=== PATIENT | male | born 1935 | race Asian ===

== ENCOUNTER 2018-09-05 15:56 | Inpatient (IN) | payer MEDICARE, OTHER ==
[2018-09-05 16:06] LABS: ADD MAN DIFF? NO
[2018-09-05] MEDS: morphine 4 MG/ML VIAL IV (16:07)
[2018-09-05] MEDS: ONDANSETRON 4 MG INJ IV (16:07)
[2018-09-05] MEDS: NITROGLYCERIN 2% 1 GM OINT PKT TD (16:07)
[2018-09-05] MEDS: HEPARIN 1000 UNITS/ML 10 ML INJ IV (16:08)
[2018-09-05 16:14] LABS: WHITE BLOOD COUNT 9.5 10^3/ul (4.8-10.8)
[2018-09-05 16:14] LABS: BASOPHILS % 0.2 % (0.0-2.0); EOSINOPHILS % 0.4 % (0.0-7.0); HEMATOCRIT 40.4 % (42.0-52.0); HEMOGLOBIN 13.6 g/dl (14.0-18.0); LYMPHOCYTES # 1.6 10^3/ul (0.8-2.9); LYMPHOCYTES % 16.2 % (15.0-51.0); MEAN CORPUSCULAR HEMOGLOBIN 28.3 pg (29.0-33.0); MEAN CORPUSCULAR HGB CONC 33.7 g/dl (32.0-37.0); MEAN CORPUSCULAR VOLUME 84.2 fl (82.0-101.0); MEAN PLATELET VOLUME 10.6 fl (7.4-10.4); MONOCYTE # 0.9 10^3/ul (0.3-0.9); MONOCYTES % 9.2 % (0.0-11.0); NEUTROPHILS % 73.6 % (39.0-77.0); PLATELET COUNT 203 10^3/UL (140-415)
[2018-09-05] MEDS ORDERED: NITROGLYCERIN (IC) 100 MCG/ML INJ (16:22)
[2018-09-05] MEDS ORDERED: LIDOCAINE 1% (MDV) 20 ML INJ (16:22)
[2018-09-05] MEDS ORDERED: VERAPAMIL 5 MG INJ ×2 (16:22→16:44)
[2018-09-05] MEDS ORDERED: HEPARIN 1000 UNITS/ML 10 ML INJ (16:22)
[2018-09-05] MEDS ORDERED: FENTAnyl 50 MCG/ML VIAL (16:24)
[2018-09-05] MEDS ORDERED: MIDAZOLAM 1 MG/ML 2 ML INJ (16:32)
[2018-09-05 16:33] LABS: ANION GAP 8 (5-13); BLOOD UREA NITROGEN 18 mg/dl (7-20); CALCIUM 10.5 mg/dl (8.4-10.2); CARBON DIOXIDE 29 mmol/L (21-31); CHLORIDE 102 mmol/L (97-110); CREATININE 1.06 mg/dl (0.61-1.24); GLUCOSE 113 mg/dl (70-220); POTASSIUM 4.5 mmol/L (3.5-5.1); SODIUM 139 mmol/L (135-144)
[2018-09-05] MEDS ORDERED: CLOPIDOGREL 300 MG TAB (16:42)
[2018-09-05] MEDS ORDERED: NORepinephrine 8MG/250 ML (PMX 250 ML (17:10)
[2018-09-05] MEDS ORDERED: BIVALIRUDIN 250MG /NS 50 ML 50 ML IVPB ×2 (17:28→17:39)
[2018-09-05] MEDS: ATORVASTATIN 40 MG TAB PO (21:16)
[2018-09-06 08:10] LABS: ADD MAN DIFF? NO
[2018-09-06 08:12] LABS: BASOPHILS % 0.3 % (0.0-2.0); EOSINOPHILS % 0.1 % (0.0-7.0); HEMATOCRIT 36.1 % (42.0-52.0); HEMOGLOBIN 12.2 g/dl (14.0-18.0); LYMPHOCYTES # 1.4 10^3/ul (0.8-2.9); LYMPHOCYTES % 15.2 % (15.0-51.0); MEAN CORPUSCULAR HEMOGLOBIN 28.4 pg (29.0-33.0); MEAN CORPUSCULAR HGB CONC 33.8 g/dl (32.0-37.0); MEAN CORPUSCULAR VOLUME 84.1 fl (82.0-101.0); MEAN PLATELET VOLUME 10.8 fl (7.4-10.4); MONOCYTE # 1.1 10^3/ul (0.3-0.9); MONOCYTES % 11.8 % (0.0-11.0); NEUTROPHIL # 6.6 10^3/ul (1.6-7.5); NEUTROPHILS % 72.2 % (39.0-77.0); PLATELET COUNT 176 10^3/UL (140-415); RED BLOOD COUNT 4.29 10^6/ul (4.70-6.10); RED CELL DISTRIBUTION WIDTH 14.2 % (11.5-14.5)
[2018-09-06 08:12] LABS: WHITE BLOOD COUNT 9.2 10^3/ul (4.8-10.8)
[2018-09-06 08:27] LABS: ANION GAP 4 (5-13); BLOOD UREA NITROGEN 19 mg/dl (7-20); CALCIUM 9.5 mg/dl (8.4-10.2); CARBON DIOXIDE 28 mmol/L (21-31); CHLORIDE 106 mmol/L (97-110); CREATININE 1.01 mg/dl (0.61-1.24); GLUCOSE 100 mg/dl (70-220); MAGNESIUM 1.9 mg/dl (1.7-2.5); PHOSPHORUS 3.1 mg/dl (2.5-4.9); POTASSIUM 4.3 mmol/L (3.5-5.1); SODIUM 138 mmol/L (135-144)
[2018-09-06] MEDS: CLOPIDOGREL 75 MG TAB PO (08:54)
[2018-09-06] MEDS: ASPIRIN 81 MG TAB PO (08:54)
[2018-09-06 09:49] LABS: CHOLESTEROL 122 mg/dl (100-200)
[2018-09-06 09:49] LABS: HDL CHOLESTEROL 40 mg/dl (31-75); LDL CHOLESTEROL,CALCULATED 67 mg/dl; TRIGLYCERIDES 75 mg/dl (0-149)
[2018-09-06] MEDS: traMADol 50 MG TAB PO ×3 (13:58→21:00)
[2018-09-06] MEDS: ATORVASTATIN 40 MG TAB PO (20:14)
[2018-09-07 05:27] LABS: ADD MAN DIFF? NO
[2018-09-07 05:33] LABS: WHITE BLOOD COUNT 9.8 10^3/ul (4.8-10.8)
[2018-09-07 05:33] LABS: BASOPHILS % 0.3 % (0.0-2.0); EOSINOPHILS # 0.1 10^3/ul (0.0-0.5); EOSINOPHILS % 1.1 % (0.0-7.0); HEMATOCRIT 33.2 % (42.0-52.0); HEMOGLOBIN 11.2 g/dl (14.0-18.0); LYMPHOCYTES # 1.2 10^3/ul (0.8-2.9); MEAN CORPUSCULAR HEMOGLOBIN 28.1 pg (29.0-33.0); MEAN CORPUSCULAR HGB CONC 33.7 g/dl (32.0-37.0); MEAN CORPUSCULAR VOLUME 83.4 fl (82.0-101.0); MEAN PLATELET VOLUME 11.2 fl (7.4-10.4); MONOCYTE # 1.2 10^3/ul (0.3-0.9); MONOCYTES % 12.4 % (0.0-11.0); NEUTROPHIL # 7.2 10^3/ul (1.6-7.5); NEUTROPHILS % 73.9 % (39.0-77.0); PLATELET COUNT 166 10^3/UL (140-415); RED BLOOD COUNT 3.98 10^6/ul (4.70-6.10); RED CELL DISTRIBUTION WIDTH 14.5 % (11.5-14.5)
[2018-09-07 05:55] LABS: ANION GAP 3 (5-13); BLOOD UREA NITROGEN 28 mg/dl (7-20); CALCIUM 9.4 mg/dl (8.4-10.2); CARBON DIOXIDE 28 mmol/L (21-31); CHLORIDE 105 mmol/L (97-110); CREATININE 1.24 mg/dl (0.61-1.24); GLUCOSE 120 mg/dl (70-220); POTASSIUM 4.1 mmol/L (3.5-5.1); SODIUM 136 mmol/L (135-144)
[2018-09-07] MEDS: ASPIRIN 81 MG TAB PO (08:25)
[2018-09-07] MEDS: CLOPIDOGREL 75 MG TAB PO (08:26)
[2018-09-07] MEDS: traMADol 50 MG TAB PO ×3 (08:26→21:16)
[2018-09-07] MEDS: ATORVASTATIN 40 MG TAB PO (21:16)
[2018-09-08] MEDS: CLOPIDOGREL 75 MG TAB PO (08:17)
[2018-09-08] MEDS: ASPIRIN 81 MG TAB PO (08:17)
[2018-09-08] MEDS: traMADol 50 MG TAB PO ×3 (08:18→20:09)
[2018-09-08] MEDS: ATORVASTATIN 40 MG TAB PO (20:09)
[2018-09-09 05:39] LABS: ADD MAN DIFF? NO
[2018-09-09 05:41] LABS: WHITE BLOOD COUNT 8.6 10^3/ul (4.8-10.8)
[2018-09-09 05:41] LABS: BASOPHILS % 0.1 % (0.0-2.0); EOSINOPHILS # 0.4 10^3/ul (0.0-0.5); EOSINOPHILS % 4.5 % (0.0-7.0); HEMOGLOBIN 10.8 g/dl (14.0-18.0); LYMPHOCYTES # 0.9 10^3/ul (0.8-2.9); LYMPHOCYTES % 10.5 % (15.0-51.0); MEAN CORPUSCULAR HEMOGLOBIN 28.6 pg (29.0-33.0); MEAN CORPUSCULAR HGB CONC 33.8 g/dl (32.0-37.0); MEAN CORPUSCULAR VOLUME 84.7 fl (82.0-101.0); MONOCYTES % 11.1 % (0.0-11.0); NEUTROPHIL # 6.3 10^3/ul (1.6-7.5); NEUTROPHILS % 73.3 % (39.0-77.0); PLATELET COUNT 174 10^3/UL (140-415); RED BLOOD COUNT 3.78 10^6/ul (4.70-6.10); RED CELL DISTRIBUTION WIDTH 14.4 % (11.5-14.5)
[2018-09-09] MEDS: LEVOTHYROXINE 50 MCG TAB PO (06:09)
[2018-09-09 06:23] LABS: ANION GAP 4 (5-13); BLOOD UREA NITROGEN 28 mg/dl (7-20); CALCIUM 9.3 mg/dl (8.4-10.2); CARBON DIOXIDE 28 mmol/L (21-31); CHLORIDE 104 mmol/L (97-110); GLUCOSE 102 mg/dl (70-220); MAGNESIUM 2.3 mg/dl (1.7-2.5); PHOSPHORUS 3.4 mg/dl (2.5-4.9); POTASSIUM 4.3 mmol/L (3.5-5.1); SODIUM 136 mmol/L (135-144)
[2018-09-09] MEDS: LACTULOSE 30ML CUP PO (07:09)
[2018-09-09] MEDS: ASPIRIN 81 MG TAB PO (08:14)
[2018-09-09] MEDS: CLOPIDOGREL 75 MG TAB PO (08:14)
[2018-09-09] MEDS: traMADol 50 MG TAB PO ×3 (08:15→20:07)
[2018-09-09] MEDS ORDERED: EPTIFIBATIDE 20 MG INJ (12:00)
[2018-09-09] MEDS ORDERED: EPTIFIBATIDE 200 MG INJ IV (12:00)
[2018-09-09] MEDS: FUROSEMIDE 20 MG INJ IV ×2 (14:08→19:15)
[2018-09-09] MEDS: ATORVASTATIN 40 MG TAB PO (20:07)
[2018-09-10] MEDS: LEVOTHYROXINE 50 MCG TAB PO (06:17)
[2018-09-10] MEDS: ASPIRIN 81 MG TAB PO (08:18)
[2018-09-10] MEDS: CLOPIDOGREL 75 MG TAB PO (08:18)
[2018-09-10] MEDS: traMADol 50 MG TAB PO ×3 (08:25→21:03)
[2018-09-10] MEDS: FUROSEMIDE 20 MG INJ IV (14:08)
[2018-09-10] MEDS: ATORVASTATIN 40 MG TAB PO (21:03)
[2018-09-11] MEDS: LEVOTHYROXINE 50 MCG TAB PO (06:04)
[2018-09-11 06:28] LABS: ADD MAN DIFF? NO
[2018-09-11 06:36] LABS: BASOPHILS % 0.4 % (0.0-2.0); EOSINOPHILS # 0.5 10^3/ul (0.0-0.5); EOSINOPHILS % 6.1 % (0.0-7.0); HEMATOCRIT 34.6 % (42.0-52.0); HEMOGLOBIN 11.4 g/dl (14.0-18.0); LYMPHOCYTES # 1.1 10^3/ul (0.8-2.9); LYMPHOCYTES % 15.3 % (15.0-51.0); MEAN CORPUSCULAR HEMOGLOBIN 27.8 pg (29.0-33.0); MEAN CORPUSCULAR HGB CONC 32.9 g/dl (32.0-37.0); MEAN CORPUSCULAR VOLUME 84.4 fl (82.0-101.0); MEAN PLATELET VOLUME 10.9 fl (7.4-10.4); MONOCYTE # 0.8 10^3/ul (0.3-0.9); MONOCYTES % 10.5 % (0.0-11.0); NEUTROPHIL # 4.9 10^3/ul (1.6-7.5); NEUTROPHILS % 67.3 % (39.0-77.0); PLATELET COUNT 239 10^3/UL (140-415); RED CELL DISTRIBUTION WIDTH 14.1 % (11.5-14.5)
[2018-09-11 06:36] LABS: WHITE BLOOD COUNT 7.3 10^3/ul (4.8-10.8)
[2018-09-11 07:03] LABS: ANION GAP 5 (5-13); BLOOD UREA NITROGEN 28 mg/dl (7-20); CALCIUM 9.5 mg/dl (8.4-10.2); CARBON DIOXIDE 33 mmol/L (21-31); CHLORIDE 101 mmol/L (97-110); CREATININE 1.07 mg/dl (0.61-1.24); GLUCOSE 101 mg/dl (70-220); MAGNESIUM 2.1 mg/dl (1.7-2.5); PHOSPHORUS 3.7 mg/dl (2.5-4.9); POTASSIUM 4.2 mmol/L (3.5-5.1); SODIUM 139 mmol/L (135-144)
[2018-09-11] MEDS: ASPIRIN 81 MG TAB PO (08:49)
[2018-09-11] MEDS: POTASSIUM CHLORIDE (SR) 10 MEQ TAB PO (08:49)
[2018-09-11] MEDS: FUROSEMIDE 20 MG TAB PO (08:49)
[2018-09-11] MEDS: CLOPIDOGREL 75 MG TAB PO (08:50)
[2018-09-11] MEDS: traMADol 50 MG TAB PO ×3 (08:50→22:11)
[2018-09-11] MEDS: ATORVASTATIN 40 MG TAB PO (22:11)
[2018-09-12] MEDS: LEVOTHYROXINE 50 MCG TAB PO (06:44)
[2018-09-12] MEDS: CLOPIDOGREL 75 MG TAB PO (09:42)
[2018-09-12] MEDS: ASPIRIN 81 MG TAB PO (09:42)
[2018-09-12] MEDS: POTASSIUM CHLORIDE (SR) 10 MEQ TAB PO (09:42)
[2018-09-12] MEDS: FUROSEMIDE 20 MG TAB PO (09:43)
[2018-09-12] MEDS: traMADol 50 MG TAB PO ×3 (10:02→20:40)
[2018-09-12] MEDS: FUROSEMIDE 40 MG INJ IV (13:34)
[2018-09-12] MEDS: ATORVASTATIN 40 MG TAB PO (20:39)
[2018-09-13 05:19] LABS: ADD MAN DIFF? NO
[2018-09-13 05:27] LABS: WHITE BLOOD COUNT 7.2 10^3/ul (4.8-10.8)
[2018-09-13 05:27] LABS: BASOPHILS % 0.4 % (0.0-2.0); EOSINOPHILS # 0.4 10^3/ul (0.0-0.5); EOSINOPHILS % 5.5 % (0.0-7.0); HEMATOCRIT 34.5 % (42.0-52.0); HEMOGLOBIN 11.5 g/dl (14.0-18.0); LYMPHOCYTES # 1.3 10^3/ul (0.8-2.9); LYMPHOCYTES % 18.4 % (15.0-51.0); MEAN CORPUSCULAR HGB CONC 33.3 g/dl (32.0-37.0); MEAN CORPUSCULAR VOLUME 84.1 fl (82.0-101.0); MEAN PLATELET VOLUME 10.7 fl (7.4-10.4); MONOCYTE # 0.9 10^3/ul (0.3-0.9); MONOCYTES % 11.7 % (0.0-11.0); NEUTROPHIL # 4.6 10^3/ul (1.6-7.5); NEUTROPHILS % 63.7 % (39.0-77.0); PLATELET COUNT 273 10^3/UL (140-415); RED CELL DISTRIBUTION WIDTH 14.1 % (11.5-14.5)
[2018-09-13 05:52] LABS: ANION GAP 5 (5-13); BLOOD UREA NITROGEN 23 mg/dl (7-20); CALCIUM 9.5 mg/dl (8.4-10.2); CARBON DIOXIDE 32 mmol/L (21-31); CHLORIDE 102 mmol/L (97-110); CREATININE 0.97 mg/dl (0.61-1.24); GLUCOSE 93 mg/dl (70-220); MAGNESIUM 2.1 mg/dl (1.7-2.5); PHOSPHORUS 3.3 mg/dl (2.5-4.9); POTASSIUM 3.8 mmol/L (3.5-5.1); SODIUM 139 mmol/L (135-144)
[2018-09-13] MEDS: LEVOTHYROXINE 50 MCG TAB PO (06:35)
[2018-09-13] MEDS: POTASSIUM CHLORIDE (SR) 10 MEQ TAB PO (08:55)
[2018-09-13] MEDS: ASPIRIN 81 MG TAB PO (08:55)
[2018-09-13] MEDS: CLOPIDOGREL 75 MG TAB PO (08:55)
[2018-09-13] MEDS: FUROSEMIDE 40 MG TAB PO (08:55)
[2018-09-13] MEDS: traMADol 50 MG TAB PO ×3 (08:59→20:26)
[2018-09-13] MEDS: ATORVASTATIN 40 MG TAB PO (20:26)
[2018-09-14 06:13] LABS: ADD MAN DIFF? NO
[2018-09-14 06:22] LABS: BASOPHILS % 0.4 % (0.0-2.0); EOSINOPHILS # 0.4 10^3/ul (0.0-0.5); EOSINOPHILS % 5.3 % (0.0-7.0); HEMATOCRIT 33.1 % (42.0-52.0); LYMPHOCYTES # 1.4 10^3/ul (0.8-2.9); LYMPHOCYTES % 18.7 % (15.0-51.0); MEAN CORPUSCULAR HEMOGLOBIN 27.8 pg (29.0-33.0); MEAN CORPUSCULAR HGB CONC 33.2 g/dl (32.0-37.0); MEAN CORPUSCULAR VOLUME 83.6 fl (82.0-101.0); MEAN PLATELET VOLUME 10.6 fl (7.4-10.4); MONOCYTE # 0.9 10^3/ul (0.3-0.9); MONOCYTES % 11.3 % (0.0-11.0); NEUTROPHIL # 4.9 10^3/ul (1.6-7.5); NEUTROPHILS % 63.9 % (39.0-77.0); PLATELET COUNT 296 10^3/UL (140-415); RED BLOOD COUNT 3.96 10^6/ul (4.70-6.10); RED CELL DISTRIBUTION WIDTH 13.9 % (11.5-14.5)
[2018-09-14 06:22] LABS: WHITE BLOOD COUNT 7.6 10^3/ul (4.8-10.8)
[2018-09-14 06:54] LABS: ANION GAP 4 (5-13); BLOOD UREA NITROGEN 23 mg/dl (7-20); CALCIUM 9.1 mg/dl (8.4-10.2); CARBON DIOXIDE 32 mmol/L (21-31); CHLORIDE 102 mmol/L (97-110); GLUCOSE 94 mg/dl (70-220); PHOSPHORUS 3.6 mg/dl (2.5-4.9); SODIUM 138 mmol/L (135-144)
[2018-09-14] MEDS: LEVOTHYROXINE 50 MCG TAB PO (08:19)
[2018-09-14] MEDS: FUROSEMIDE 40 MG TAB PO (08:20)
[2018-09-14] MEDS: CLOPIDOGREL 75 MG TAB PO (08:21)
[2018-09-14] MEDS: POTASSIUM CHLORIDE (SR) 10 MEQ TAB PO (08:21)
[2018-09-14] MEDS: ASPIRIN 81 MG TAB PO (08:21)
[2018-09-14] MEDS: traMADol 50 MG TAB PO ×2 (08:24→14:22)
[2018-09-14] MEDS: LACTULOSE 30ML CUP PO (14:21)
== END 2018-09-14 18:26 | DRG 246 ==
LOC: 6WM 09-07 15:28 → E/R 15:56 → CCL 16:10 → SDS 16:10 → CCL 18:13 → ICU 18:38
PROC: 027035Z Dilation of Coronary Artery, One Artery with Two Drug-eluting Intraluminal Devices, Percutaneous Approach (ICD-10-PCS; principal; 2018-09-05 16:16)
PROC: 4A023N7 Measurement of Cardiac Sampling and Pressure, Left Heart, Percutaneous Approach (ICD-10-PCS; 2018-09-05 16:16)
PROC: B211YZZ Fluoroscopy of Multiple Coronary Arteries using Other Contrast (ICD-10-PCS; 2018-09-05 16:16)
PROC: 3E033PZ Introduction of Platelet Inhibitor into Peripheral Vein, Percutaneous Approach (ICD-10-PCS; 2018-09-05 16:16)
DX: I21.02 ST elevation (STEMI) myocardial infarction involving left anterior descending coronary artery (principal); I50.23 Acute on chronic systolic (congestive) heart failure; I11.0 Hypertensive heart disease with heart failure; I25.10 Atherosclerotic heart disease of native coronary artery without angina pectoris; I25.5 Ischemic cardiomyopathy; E03.9 Hypothyroidism, unspecified; E78.5 Hyperlipidemia, unspecified; D64.9 Anemia, unspecified; M25.569 Pain in unspecified knee
CPT/HCPCS: 36415; 71045; 80048; 80061; 82962; 83735; 84100; 84484; 85025; 87081; 93005; 93306; 96374; 96375; 97110; 97162; 97530; 99285-25

== ENCOUNTER 2018-09-14 19:40 | Inpatient (IN) | payer MEDICARE, OTHER ==
[2018-09-14] MEDS ORDERED: LACTULOSE 30ML CUP PO (22:00)
[2018-09-14] MEDS: ATORVASTATIN 40 MG TAB PO (22:21)
[2018-09-14] MEDS: traMADol 50 MG TAB PO (22:22)
[2018-09-14] MEDS ORDERED: ACETAMINOPHEN 325 MG TAB PO (22:30)
[2018-09-14] MEDS ORDERED: BISACODYL 10 MG SUPP PR (22:30)
[2018-09-14] MEDS ORDERED: MAGNESIUM HYDROXIDE 30ML CUP PO (22:30)
[2018-09-14 23:22] LABS: ADD UMIC YES; UR ASCORBIC ACID NEGATIVE (NEGATIVE); UR BILIRUBIN (Dip) NEGATIVE (NEGATIVE); UR BLOOD (Dip) 1+ mg/dL (NEGATIVE); UR CLARITY CLEAR (CLEAR); UR COLOR YELLOW (YELLOW); UR GLUCOSE (Dip) NEGATIVE (NEGATIVE); UR KETONES (Dip) NEGATIVE (NEGATIVE); UR LEUKOCYTE ESTERASE (Dip) NEGATIVE Leu/ul (NEGATIVE); UR NITRITE (Dip) NEGATIVE (NEGATIVE); UR RBC 10 /HPF (0-5); UR SPECIFIC GRAVITY (Dip) 1.014 (1.003-1.030); UR TOTAL PROTEIN (Dip) NEGATIVE (NEGATIVE); UR UROBILINOGEN (Dip) 2+ mg/dL (NEGATIVE); UR WBC 0 /HPF (0-5)
[2018-09-15] MEDS: LEVOTHYROXINE 50 MCG TAB PO (06:52)
[2018-09-15 07:16] LABS: ADD MAN DIFF? NO
[2018-09-15 07:17] LABS: BASOPHILS % 0.5 % (0.0-2.0); EOSINOPHILS # 0.4 10^3/ul (0.0-0.5); HEMATOCRIT 33.6 % (42.0-52.0); LYMPHOCYTES # 1.4 10^3/ul (0.8-2.9); LYMPHOCYTES % 18.4 % (15.0-51.0); MEAN CORPUSCULAR HEMOGLOBIN 27.7 pg (29.0-33.0); MEAN CORPUSCULAR HGB CONC 32.7 g/dl (32.0-37.0); MEAN CORPUSCULAR VOLUME 84.6 fl (82.0-101.0); MEAN PLATELET VOLUME 10.4 fl (7.4-10.4); MONOCYTE # 0.9 10^3/ul (0.3-0.9); NEUTROPHIL # 5.1 10^3/ul (1.6-7.5); NEUTROPHILS % 64.8 % (39.0-77.0); PLATELET COUNT 294 10^3/UL (140-415); RED BLOOD COUNT 3.97 10^6/ul (4.70-6.10); RED CELL DISTRIBUTION WIDTH 13.7 % (11.5-14.5)
[2018-09-15 07:17] LABS: WHITE BLOOD COUNT 7.8 10^3/ul (4.8-10.8)
[2018-09-15 07:46] LABS: ALANINE AMINOTRANSFERASE 60 IU/L (13-69); ALBUMIN 2.9 g/dl (3.3-4.9); ALBUMIN/GLOBULIN RATIO 1.07; ALKALINE PHOSPHATASE 126 IU/L (42-121); ANION GAP 4 (5-13); ASPARTATE AMINO TRANSFERASE 36 IU/L (15-46); BILIRUBIN,INDIRECT 0.7 mg/dl (0-1.1); BILIRUBIN,TOTAL 0.7 mg/dl (0.2-1.3); BLOOD UREA NITROGEN 24 mg/dl (7-20); CALCIUM 9.5 mg/dl (8.4-10.2); CARBON DIOXIDE 31 mmol/L (21-31); CHLORIDE 100 mmol/L (97-110); CREATININE 0.95 mg/dl (0.61-1.24); GLUCOSE 91 mg/dl (70-220); POTASSIUM 3.8 mmol/L (3.5-5.1); SODIUM 135 mmol/L (135-144); TOTAL PROTEIN 5.6 g/dl (6.1-8.1)
[2018-09-15] MEDS: ASPIRIN 81 MG TAB PO (09:06)
[2018-09-15] MEDS: POTASSIUM CHLORIDE (SR) 10 MEQ TAB PO (09:06)
[2018-09-15] MEDS: DOCUSATE SODIUM 100 MG CAP PO ×2 (09:07→21:16)
[2018-09-15] MEDS: traMADol 50 MG TAB PO ×3 (09:08→21:16)
[2018-09-15] MEDS: FUROSEMIDE 40 MG TAB PO (09:08)
[2018-09-15] MEDS: CLOPIDOGREL 75 MG TAB PO (09:09)
[2018-09-15] MEDS: DICLOFENAC SODIUM 1% GEL 100 GM TUBE TP (13:37)
[2018-09-15] MEDS: ATORVASTATIN 40 MG TAB PO (21:16)
[2018-09-15] MEDS: SENNA TAB PO (21:16)
[2018-09-16] MEDS: LEVOTHYROXINE 50 MCG TAB PO (07:30)
[2018-09-16] MEDS: CLOPIDOGREL 75 MG TAB PO (08:57)
[2018-09-16] MEDS: ASPIRIN 81 MG TAB PO (08:57)
[2018-09-16] MEDS: POTASSIUM CHLORIDE (SR) 10 MEQ TAB PO (08:57)
[2018-09-16] MEDS: traMADol 50 MG TAB PO ×3 (08:57→20:54)
[2018-09-16] MEDS: DOCUSATE SODIUM 100 MG CAP PO ×2 (08:58→20:53)
[2018-09-16] MEDS: FUROSEMIDE 40 MG TAB PO ×2 (09:00→18:45)
[2018-09-16] MEDS: DICLOFENAC SODIUM 1% GEL 100 GM TUBE TP ×3 (13:00→20:56)
[2018-09-16] MEDS: ATORVASTATIN 40 MG TAB PO (20:53)
[2018-09-16] MEDS: SENNA TAB PO (20:54)
[2018-09-17] MEDS: LEVOTHYROXINE 50 MCG TAB PO (06:26)
[2018-09-17 08:24] LABS: ADD MAN DIFF? NO
[2018-09-17 08:27] LABS: BASOPHILS % 0.4 % (0.0-2.0); EOSINOPHILS # 0.3 10^3/ul (0.0-0.5); EOSINOPHILS % 3.5 % (0.0-7.0); HEMATOCRIT 33.2 % (42.0-52.0); HEMOGLOBIN 10.9 g/dl (14.0-18.0); LYMPHOCYTES # 1.4 10^3/ul (0.8-2.9); LYMPHOCYTES % 18.6 % (15.0-51.0); MEAN CORPUSCULAR HEMOGLOBIN 27.7 pg (29.0-33.0); MEAN CORPUSCULAR HGB CONC 32.8 g/dl (32.0-37.0); MEAN CORPUSCULAR VOLUME 84.5 fl (82.0-101.0); MEAN PLATELET VOLUME 10.5 fl (7.4-10.4); MONOCYTE # 0.8 10^3/ul (0.3-0.9); MONOCYTES % 10.5 % (0.0-11.0); NEUTROPHIL # 5.1 10^3/ul (1.6-7.5); NEUTROPHILS % 66.6 % (39.0-77.0); PLATELET COUNT 276 10^3/UL (140-415); RED BLOOD COUNT 3.93 10^6/ul (4.70-6.10); RED CELL DISTRIBUTION WIDTH 13.6 % (11.5-14.5)
[2018-09-17 08:27] LABS: WHITE BLOOD COUNT 7.7 10^3/ul (4.8-10.8)
[2018-09-17] MEDS: DOCUSATE SODIUM 100 MG CAP PO ×2 (08:56→21:28)
[2018-09-17] MEDS: POTASSIUM CHLORIDE (SR) 10 MEQ TAB PO (08:56)
[2018-09-17] MEDS: CLOPIDOGREL 75 MG TAB PO (08:56)
[2018-09-17] MEDS: ASPIRIN 81 MG TAB PO (08:56)
[2018-09-17] MEDS: traMADol 50 MG TAB PO ×3 (08:57→21:28)
[2018-09-17 09:01] LABS: ANION GAP 7 (5-13); BLOOD UREA NITROGEN 23 mg/dl (7-20); CALCIUM 9.2 mg/dl (8.4-10.2); CARBON DIOXIDE 30 mmol/L (21-31); CHLORIDE 100 mmol/L (97-110); CREATININE 0.97 mg/dl (0.61-1.24); GLUCOSE 98 mg/dl (70-220); PHOSPHORUS 3.7 mg/dl (2.5-4.9); POTASSIUM 3.8 mmol/L (3.5-5.1); SODIUM 137 mmol/L (135-144)
[2018-09-17] MEDS: DICLOFENAC SODIUM 1% GEL 100 GM TUBE TP ×4 (09:01→21:30)
[2018-09-17] MEDS: FUROSEMIDE 40 MG TAB PO (15:11)
[2018-09-17] MEDS: SENNA TAB PO (21:28)
[2018-09-17] MEDS: ATORVASTATIN 40 MG TAB PO (21:28)
[2018-09-18] MEDS: LEVOTHYROXINE 50 MCG TAB PO (06:41)
[2018-09-18] MEDS: DOCUSATE SODIUM 100 MG CAP PO ×2 (11:23→21:00)
[2018-09-18] MEDS: traMADol 50 MG TAB PO ×3 (11:23→20:30)
[2018-09-18] MEDS: CLOPIDOGREL 75 MG TAB PO (11:24)
[2018-09-18] MEDS: POTASSIUM CHLORIDE (SR) 10 MEQ TAB PO (11:24)
[2018-09-18] MEDS: FUROSEMIDE 40 MG TAB PO (11:24)
[2018-09-18] MEDS: DICLOFENAC SODIUM 1% GEL 100 GM TUBE TP ×4 (11:25→20:30)
[2018-09-18] MEDS: POLYETHYLENE GLYCOL 17 GM PACKET PO (11:25)
[2018-09-18] MEDS: ASPIRIN 81 MG TAB PO (11:25)
[2018-09-18] MEDS: ATORVASTATIN 40 MG TAB PO (20:24)
[2018-09-18] MEDS: SENNA TAB PO (21:00)
[2018-09-19] MEDS: LEVOTHYROXINE 50 MCG TAB PO (05:46)
[2018-09-19] MEDS ORDERED: NA PHOSPHATE/BIPHOS 133 ML ENEMA PR (08:30)
[2018-09-19] MEDS: CLOPIDOGREL 75 MG TAB PO (09:44)
[2018-09-19] MEDS: DOCUSATE SODIUM 100 MG CAP PO ×2 (09:44→20:42)
[2018-09-19] MEDS: DICLOFENAC SODIUM 1% GEL 100 GM TUBE TP ×4 (09:44→20:44)
[2018-09-19] MEDS: POLYETHYLENE GLYCOL 17 GM PACKET PO (09:44)
[2018-09-19] MEDS: FUROSEMIDE 40 MG TAB PO (09:45)
[2018-09-19] MEDS: POTASSIUM CHLORIDE (SR) 10 MEQ TAB PO (09:45)
[2018-09-19] MEDS: traMADol 50 MG TAB PO ×3 (09:45→20:44)
[2018-09-19] MEDS: ASPIRIN 81 MG TAB PO (09:45)
[2018-09-19] MEDS: SPIRONOLACTONE 25 MG TAB PO (14:00)
[2018-09-19] MEDS: ATORVASTATIN 40 MG TAB PO (20:43)
[2018-09-19] MEDS: SENNA TAB PO (20:43)
[2018-09-20] MEDS: LEVOTHYROXINE 50 MCG TAB PO (06:12)
[2018-09-20] MEDS: SPIRONOLACTONE 25 MG TAB PO (06:12)
[2018-09-20 07:07] LABS: ADD MAN DIFF? NO
[2018-09-20 07:09] LABS: BASOPHILS % 0.4 % (0.0-2.0); EOSINOPHILS # 0.3 10^3/ul (0.0-0.5); HEMATOCRIT 33.2 % (42.0-52.0); HEMOGLOBIN 10.9 g/dl (14.0-18.0); LYMPHOCYTES # 1.1 10^3/ul (0.8-2.9); LYMPHOCYTES % 16.3 % (15.0-51.0); MEAN CORPUSCULAR HEMOGLOBIN 27.5 pg (29.0-33.0); MEAN CORPUSCULAR HGB CONC 32.8 g/dl (32.0-37.0); MEAN CORPUSCULAR VOLUME 83.6 fl (82.0-101.0); MEAN PLATELET VOLUME 10.2 fl (7.4-10.4); MONOCYTE # 0.7 10^3/ul (0.3-0.9); MONOCYTES % 10.3 % (0.0-11.0); NEUTROPHIL # 4.7 10^3/ul (1.6-7.5); NEUTROPHILS % 68.7 % (39.0-77.0); PLATELET COUNT 267 10^3/UL (140-415); RED BLOOD COUNT 3.97 10^6/ul (4.70-6.10); RED CELL DISTRIBUTION WIDTH 13.5 % (11.5-14.5)
[2018-09-20 07:09] LABS: WHITE BLOOD COUNT 6.8 10^3/ul (4.8-10.8)
[2018-09-20 07:29] LABS: ANION GAP 3 (5-13); BLOOD UREA NITROGEN 20 mg/dl (7-20); CALCIUM 9.4 mg/dl (8.4-10.2); CARBON DIOXIDE 32 mmol/L (21-31); CHLORIDE 99 mmol/L (97-110); CREATININE 0.92 mg/dl (0.61-1.24); GLUCOSE 97 mg/dl (70-220); MAGNESIUM 2.1 mg/dl (1.7-2.5); PHOSPHORUS 3.4 mg/dl (2.5-4.9); SODIUM 134 mmol/L (135-144)
[2018-09-20] MEDS: POLYETHYLENE GLYCOL 17 GM PACKET PO (09:02)
[2018-09-20] MEDS: DOCUSATE SODIUM 100 MG CAP PO ×2 (09:02→20:34)
[2018-09-20] MEDS: ASPIRIN 81 MG TAB PO (09:03)
[2018-09-20] MEDS: POTASSIUM CHLORIDE (SR) 10 MEQ TAB PO (09:03)
[2018-09-20] MEDS: FUROSEMIDE 40 MG TAB PO (09:04)
[2018-09-20] MEDS: CLOPIDOGREL 75 MG TAB PO (09:04)
[2018-09-20] MEDS: traMADol 50 MG TAB PO ×3 (09:04→20:34)
[2018-09-20] MEDS: DICLOFENAC SODIUM 1% GEL 100 GM TUBE TP ×4 (09:05→20:36)
[2018-09-20] MEDS: ATORVASTATIN 40 MG TAB PO (20:34)
[2018-09-20] MEDS: SENNA TAB PO (20:34)
[2018-09-21] MEDS: SPIRONOLACTONE 25 MG TAB PO (06:04)
[2018-09-21] MEDS: LEVOTHYROXINE 50 MCG TAB PO (06:06)
[2018-09-21] MEDS: ASPIRIN 81 MG TAB PO (08:34)
[2018-09-21] MEDS: CLOPIDOGREL 75 MG TAB PO (08:34)
[2018-09-21] MEDS: POTASSIUM CHLORIDE (SR) 10 MEQ TAB PO (08:34)
[2018-09-21] MEDS: FUROSEMIDE 40 MG TAB PO (08:35)
[2018-09-21] MEDS: traMADol 50 MG TAB PO ×3 (08:35→21:11)
[2018-09-21] MEDS: DOCUSATE SODIUM 100 MG CAP PO ×2 (08:35→21:00)
[2018-09-21] MEDS: POLYETHYLENE GLYCOL 17 GM PACKET PO (08:35)
[2018-09-21] MEDS: DICLOFENAC SODIUM 1% GEL 100 GM TUBE TP ×4 (08:40→21:00)
[2018-09-21] MEDS: SENNA TAB PO (21:00)
[2018-09-21] MEDS: ATORVASTATIN 40 MG TAB PO (21:11)
[2018-09-22] MEDS: LEVOTHYROXINE 50 MCG TAB PO (06:09)
[2018-09-22] MEDS: SPIRONOLACTONE 25 MG TAB PO (06:09)
[2018-09-22] MEDS: ASPIRIN 81 MG TAB PO (09:02)
[2018-09-22] MEDS: FUROSEMIDE 40 MG TAB PO (09:03)
[2018-09-22] MEDS: traMADol 50 MG TAB PO ×3 (09:03→21:13)
[2018-09-22] MEDS: DOCUSATE SODIUM 100 MG CAP PO ×2 (09:04→21:13)
[2018-09-22] MEDS: POLYETHYLENE GLYCOL 17 GM PACKET PO (09:04)
[2018-09-22] MEDS: POTASSIUM CHLORIDE (SR) 10 MEQ TAB PO (09:04)
[2018-09-22] MEDS: DICLOFENAC SODIUM 1% GEL 100 GM TUBE TP ×4 (09:05→21:13)
[2018-09-22] MEDS: CLOPIDOGREL 75 MG TAB PO (09:08)
[2018-09-22] MEDS: SENNA TAB PO (21:13)
[2018-09-22] MEDS: ATORVASTATIN 40 MG TAB PO (21:13)
[2018-09-23] MEDS: LEVOTHYROXINE 50 MCG TAB PO (06:41)
[2018-09-23] MEDS: SPIRONOLACTONE 25 MG TAB PO (06:41)
[2018-09-23] MEDS: POLYETHYLENE GLYCOL 17 GM PACKET PO (08:26)
[2018-09-23] MEDS: ASPIRIN 81 MG TAB PO (08:29)
[2018-09-23] MEDS: CLOPIDOGREL 75 MG TAB PO (08:30)
[2018-09-23] MEDS: traMADol 50 MG TAB PO ×3 (08:31→21:44)
[2018-09-23] MEDS: DOCUSATE SODIUM 100 MG CAP PO ×2 (08:32→21:45)
[2018-09-23] MEDS: POTASSIUM CHLORIDE (SR) 10 MEQ TAB PO (08:32)
[2018-09-23] MEDS: FUROSEMIDE 40 MG TAB PO (08:33)
[2018-09-23] MEDS: DICLOFENAC SODIUM 1% GEL 100 GM TUBE TP ×4 (08:34→21:00)
[2018-09-23] MEDS ORDERED: ARTIFICIAL TEARS 15 ML OPH BOTH EYES (17:00)
[2018-09-23] MEDS: ATORVASTATIN 40 MG TAB PO (21:44)
[2018-09-23] MEDS: SENNA TAB PO (21:44)
[2018-09-24] MEDS: LEVOTHYROXINE 50 MCG TAB PO (06:40)
[2018-09-24] MEDS: SPIRONOLACTONE 25 MG TAB PO (06:40)
[2018-09-24] MEDS: DOCUSATE SODIUM 100 MG CAP PO ×2 (08:25→21:45)
[2018-09-24] MEDS: ASPIRIN 81 MG TAB PO (08:25)
[2018-09-24] MEDS: FUROSEMIDE 40 MG TAB PO (08:26)
[2018-09-24] MEDS: POTASSIUM CHLORIDE (SR) 10 MEQ TAB PO (08:26)
[2018-09-24] MEDS: traMADol 50 MG TAB PO ×3 (08:27→21:44)
[2018-09-24] MEDS: CLOPIDOGREL 75 MG TAB PO (08:27)
[2018-09-24] MEDS: DICLOFENAC SODIUM 1% GEL 100 GM TUBE TP ×4 (08:27→21:48)
[2018-09-24] MEDS: POLYETHYLENE GLYCOL 17 GM PACKET PO (09:54)
[2018-09-24] MEDS: LISINOPRIL 5 MG TAB PO (11:12)
[2018-09-24] MEDS: SENNA TAB PO (21:00)
[2018-09-24] MEDS: ATORVASTATIN 40 MG TAB PO (21:44)
[2018-09-25] MEDS: LEVOTHYROXINE 50 MCG TAB PO (06:20)
[2018-09-25] MEDS: SPIRONOLACTONE 25 MG TAB PO (06:20)
[2018-09-25] MEDS: POLYETHYLENE GLYCOL 17 GM PACKET PO (09:00)
[2018-09-25] MEDS: DICLOFENAC SODIUM 1% GEL 100 GM TUBE TP ×4 (09:00→20:33)
[2018-09-25] MEDS: ASPIRIN 81 MG TAB PO (09:02)
[2018-09-25] MEDS: DOCUSATE SODIUM 100 MG CAP PO ×2 (09:02→20:32)
[2018-09-25] MEDS: LISINOPRIL 5 MG TAB PO (09:05)
[2018-09-25] MEDS: FUROSEMIDE 40 MG TAB PO (09:05)
[2018-09-25] MEDS: POTASSIUM CHLORIDE (SR) 10 MEQ TAB PO (09:06)
[2018-09-25] MEDS: CLOPIDOGREL 75 MG TAB PO (09:07)
[2018-09-25] MEDS: traMADol 50 MG TAB PO ×3 (09:07→20:32)
[2018-09-25] MEDS: BETAMET NA PHOS/AC(6 MG/ML) 5ML INJ INJ (18:00)
[2018-09-25] MEDS: BUPIVACAINE 0.5%/EPI (SDV) 10 ML INJ INJ (18:00)
[2018-09-25] MEDS: BUPIVACAINE 0.5%/EPI (SDV) 30 ML INJ INJ (19:30)
[2018-09-25] MEDS: ATORVASTATIN 40 MG TAB PO (20:32)
[2018-09-25] MEDS: SENNA TAB PO (20:32)
[2018-09-26] MEDS: LEVOTHYROXINE 50 MCG TAB PO (06:16)
[2018-09-26] MEDS: SPIRONOLACTONE 25 MG TAB PO (06:16)
[2018-09-26 08:25] LABS: ANION GAP 9 (5-13); BLOOD UREA NITROGEN 36 mg/dl (7-20); CALCIUM 9.7 mg/dl (8.4-10.2); CARBON DIOXIDE 24 mmol/L (21-31); CHLORIDE 103 mmol/L (97-110); CREATININE 0.96 mg/dl (0.61-1.24); GLUCOSE 155 mg/dl (70-220); MAGNESIUM 2.2 mg/dl (1.7-2.5); PHOSPHORUS 3.9 mg/dl (2.5-4.9); POTASSIUM 5.1 mmol/L (3.5-5.1); SODIUM 136 mmol/L (135-144)
[2018-09-26] MEDS: DOCUSATE SODIUM 100 MG CAP PO ×2 (09:27→20:38)
[2018-09-26] MEDS: FUROSEMIDE 40 MG TAB PO (09:27)
[2018-09-26] MEDS: POLYETHYLENE GLYCOL 17 GM PACKET PO (09:27)
[2018-09-26] MEDS: LISINOPRIL 5 MG TAB PO (09:27)
[2018-09-26] MEDS: CLOPIDOGREL 75 MG TAB PO (09:29)
[2018-09-26] MEDS: traMADol 50 MG TAB PO ×3 (09:29→20:38)
[2018-09-26] MEDS: POTASSIUM CHLORIDE (SR) 10 MEQ TAB PO (09:29)
[2018-09-26] MEDS: ASPIRIN 81 MG TAB PO (09:29)
[2018-09-26] MEDS: DICLOFENAC SODIUM 1% GEL 100 GM TUBE TP ×4 (09:30→20:40)
[2018-09-26] MEDS: SENNA TAB PO (20:38)
[2018-09-26] MEDS: ATORVASTATIN 40 MG TAB PO (20:38)
[2018-09-27] MEDS: LEVOTHYROXINE 50 MCG TAB PO (06:03)
[2018-09-27] MEDS: SPIRONOLACTONE 25 MG TAB PO (06:03)
[2018-09-27] MEDS: LISINOPRIL 5 MG TAB PO (09:00)
[2018-09-27] MEDS: FUROSEMIDE 40 MG TAB PO (09:00)
[2018-09-27] MEDS: POLYETHYLENE GLYCOL 17 GM PACKET PO (09:25)
[2018-09-27] MEDS: CLOPIDOGREL 75 MG TAB PO (09:27)
[2018-09-27] MEDS: POTASSIUM CHLORIDE (SR) 10 MEQ TAB PO (09:27)
[2018-09-27] MEDS: traMADol 50 MG TAB PO ×3 (09:28→21:01)
[2018-09-27] MEDS: DOCUSATE SODIUM 100 MG CAP PO ×2 (09:36→21:01)
[2018-09-27] MEDS: ASPIRIN 81 MG TAB PO (09:36)
[2018-09-27] MEDS: DICLOFENAC SODIUM 1% GEL 100 GM TUBE TP ×4 (09:37→21:02)
[2018-09-27] MEDS: SENNA TAB PO (21:01)
[2018-09-27] MEDS: ATORVASTATIN 40 MG TAB PO (21:01)
[2018-09-28] MEDS: LEVOTHYROXINE 50 MCG TAB PO (06:36)
[2018-09-28] MEDS: SPIRONOLACTONE 25 MG TAB PO (06:36)
[2018-09-28] MEDS: POLYETHYLENE GLYCOL 17 GM PACKET PO (08:43)
[2018-09-28] MEDS: POTASSIUM CHLORIDE (SR) 10 MEQ TAB PO (08:45)
[2018-09-28] MEDS: ASPIRIN 81 MG TAB PO (08:45)
[2018-09-28] MEDS: FUROSEMIDE 40 MG TAB PO (08:45)
[2018-09-28] MEDS: CLOPIDOGREL 75 MG TAB PO (08:45)
[2018-09-28] MEDS: DOCUSATE SODIUM 100 MG CAP PO ×2 (08:46→21:15)
[2018-09-28] MEDS: LISINOPRIL 5 MG TAB PO (08:47)
[2018-09-28] MEDS: traMADol 50 MG TAB PO ×3 (08:48→21:15)
[2018-09-28] MEDS: DICLOFENAC SODIUM 1% GEL 100 GM TUBE TP ×4 (08:54→21:00)
[2018-09-28] MEDS: ATORVASTATIN 40 MG TAB PO (21:15)
[2018-09-28] MEDS: SENNA TAB PO (21:15)
[2018-09-29] MEDS: LEVOTHYROXINE 50 MCG TAB PO (06:37)
[2018-09-29] MEDS: SPIRONOLACTONE 25 MG TAB PO (06:37)
[2018-09-29] MEDS: CLOPIDOGREL 75 MG TAB PO (08:30)
[2018-09-29] MEDS: traMADol 50 MG TAB PO ×3 (08:31→20:30)
[2018-09-29] MEDS: POTASSIUM CHLORIDE (SR) 10 MEQ TAB PO (08:31)
[2018-09-29] MEDS: ASPIRIN 81 MG TAB PO (08:31)
[2018-09-29] MEDS: DICLOFENAC SODIUM 1% GEL 100 GM TUBE TP ×4 (08:32→20:31)
[2018-09-29] MEDS: FUROSEMIDE 20 MG TAB PO (08:44)
[2018-09-29] MEDS: POLYETHYLENE GLYCOL 17 GM PACKET PO (09:00)
[2018-09-29] MEDS: DOCUSATE SODIUM 100 MG CAP PO ×2 (09:00→20:30)
[2018-09-29] MEDS: SENNA TAB PO (20:30)
[2018-09-29] MEDS: ATORVASTATIN 40 MG TAB PO (20:30)
[2018-09-30] MEDS: LEVOTHYROXINE 50 MCG TAB PO (06:22)
[2018-09-30] MEDS: SPIRONOLACTONE 25 MG TAB PO (06:22)
[2018-09-30 07:07] LABS: ADD MAN DIFF? NO
[2018-09-30 07:10] LABS: BASOPHILS % 0.6 % (0.0-2.0); EOSINOPHILS # 0.3 10^3/ul (0.0-0.5); EOSINOPHILS % 3.6 % (0.0-7.0); HEMATOCRIT 36.5 % (42.0-52.0); HEMOGLOBIN 11.7 g/dl (14.0-18.0); LYMPHOCYTES # 1.7 10^3/ul (0.8-2.9); LYMPHOCYTES % 24.9 % (15.0-51.0); MEAN CORPUSCULAR HEMOGLOBIN 27.3 pg (29.0-33.0); MEAN CORPUSCULAR HGB CONC 32.1 g/dl (32.0-37.0); MEAN CORPUSCULAR VOLUME 85.1 fl (82.0-101.0); MEAN PLATELET VOLUME 10.4 fl (7.4-10.4); MONOCYTE # 0.7 10^3/ul (0.3-0.9); MONOCYTES % 10.4 % (0.0-11.0); NEUTROPHIL # 4.1 10^3/ul (1.6-7.5); NEUTROPHILS % 60.1 % (39.0-77.0); PLATELET COUNT 245 10^3/UL (140-415); RED BLOOD COUNT 4.29 10^6/ul (4.70-6.10); RED CELL DISTRIBUTION WIDTH 14.3 % (11.5-14.5)
[2018-09-30 07:10] LABS: WHITE BLOOD COUNT 6.9 10^3/ul (4.8-10.8)
[2018-09-30 07:32] LABS: ANION GAP 4 (5-13); BLOOD UREA NITROGEN 37 mg/dl (7-20); CALCIUM 9.5 mg/dl (8.4-10.2); CARBON DIOXIDE 26 mmol/L (21-31); CHLORIDE 105 mmol/L (97-110); CREATININE 0.97 mg/dl (0.61-1.24); GLUCOSE 88 mg/dl (70-220); MAGNESIUM 2.2 mg/dl (1.7-2.5); PHOSPHORUS 3.7 mg/dl (2.5-4.9); POTASSIUM 5.3 mmol/L (3.5-5.1); SODIUM 135 mmol/L (135-144)
[2018-09-30] MEDS: ASPIRIN 81 MG TAB PO (08:30)
[2018-09-30] MEDS: DICLOFENAC SODIUM 1% GEL 100 GM TUBE TP ×4 (08:31→21:27)
[2018-09-30] MEDS: DOCUSATE SODIUM 100 MG CAP PO ×2 (08:31→21:00)
[2018-09-30] MEDS: traMADol 50 MG TAB PO ×3 (08:31→21:26)
[2018-09-30] MEDS: CLOPIDOGREL 75 MG TAB PO (08:31)
[2018-09-30] MEDS: POLYETHYLENE GLYCOL 17 GM PACKET PO (08:32)
[2018-09-30] MEDS: FUROSEMIDE 20 MG TAB PO (08:32)
[2018-09-30] MEDS: SENNA TAB PO (21:00)
[2018-09-30] MEDS: ATORVASTATIN 40 MG TAB PO (21:26)
[2018-10-01] MEDS: SPIRONOLACTONE 25 MG TAB PO (06:39)
[2018-10-01] MEDS: LEVOTHYROXINE 50 MCG TAB PO (06:39)
[2018-10-01 06:55] LABS: ANION GAP 6 (5-13); BLOOD UREA NITROGEN 32 mg/dl (7-20); CALCIUM 9.6 mg/dl (8.4-10.2); CARBON DIOXIDE 27 mmol/L (21-31); CHLORIDE 103 mmol/L (97-110); CREATININE 0.97 mg/dl (0.61-1.24); GLUCOSE 93 mg/dl (70-220); MAGNESIUM 2.2 mg/dl (1.7-2.5); PHOSPHORUS 3.8 mg/dl (2.5-4.9); POTASSIUM 4.7 mmol/L (3.5-5.1); SODIUM 136 mmol/L (135-144)
[2018-10-01] MEDS: FUROSEMIDE 20 MG TAB PO (08:35)
[2018-10-01] MEDS: ASPIRIN 81 MG TAB PO (08:35)
[2018-10-01] MEDS: DOCUSATE SODIUM 100 MG CAP PO (08:38)
[2018-10-01] MEDS: CLOPIDOGREL 75 MG TAB PO (08:38)
[2018-10-01] MEDS: traMADol 50 MG TAB PO ×2 (08:38→16:12)
[2018-10-01] MEDS: DICLOFENAC SODIUM 1% GEL 100 GM TUBE TP ×2 (08:39→15:32)
[2018-10-01] MEDS: POLYETHYLENE GLYCOL 17 GM PACKET PO (08:40)
== END 2018-10-01 16:55 | DRG 281 ==
LOC: VRC 19:40
PROC: F07Z5ZZ Bed Mobility Treatment (ICD-10-PCS; principal; 2018-09-14)
PROC: F08Z2ZZ Grooming/Personal Hygiene Treatment (ICD-10-PCS; 2018-09-14)
DX: I21.09 ST elevation (STEMI) myocardial infarction involving other coronary artery of anterior wall (principal); I50.22 Chronic systolic (congestive) heart failure; R53.81 Other malaise; I25.10 Atherosclerotic heart disease of native coronary artery without angina pectoris; Z95.5 Presence of coronary angioplasty implant and graft; I25.5 Ischemic cardiomyopathy; D64.9 Anemia, unspecified; E03.9 Hypothyroidism, unspecified; E78.5 Hyperlipidemia, unspecified; G47.30 Sleep apnea, unspecified; I49.9 Cardiac arrhythmia, unspecified; I11.0 Hypertensive heart disease with heart failure; K40.90 Unilateral inguinal hernia, without obstruction or gangrene, not specified as recurrent; Z79.82 Long term (current) use of aspirin; K59.00 Constipation, unspecified; E87.6 Hypokalemia; B35.1 Tinea unguium; M79.672 Pain in left foot; M79.671 Pain in right foot
CPT/HCPCS: 73562; 73562-50; 80048; 80053; 81001; 83735; 84100; 85025; 87081; 87086; 94660; 97110; 97112; 97116; 97150; 97163; 97166; 97530; 97535; 97542